=== PATIENT | female | born 1945 | race Native Hawaiian/Other Pacific Islander ===

== ENCOUNTER 2021-03-02 13:43 | Outpatient (CLI) | payer OTHER | END 2021-03-02 19:45 | disposition home or self-care (01) | LOC: RAD 13:43 | PROVIDERS: ATTEND Orthopaedic Surgery | DX: M25.551 Pain in right hip (principal) ==

== ENCOUNTER 2022-04-26 12:50 | Outpatient (CLI) | payer OTHER | END 2022-04-26 19:50 | disposition home or self-care (01) | LOC: RAD 12:50 | PROVIDERS: ATTEND Physician Assistant | DX: M25.551 Pain in right hip (principal) ==